=== PATIENT | male | born 1945 | race African-American/Black ===

== ENCOUNTER 2017-08-05 13:44 | Emergency (ER) | payer OTHER ==
[~2017-08-05 13:44] MED LIST: ASAB PO; BUM1 PO; C1 PO; CORDARONE PO; COREG6 PO; DSS PO; INHALER INH; KLOR-CON M2020 MEQ PO; L40 PO; LAN125 PO; PERCOCET 10/3251 TAB PO; SPIRO25 PO; TOPXL25 PO; Z300 PO
[2017-08-05 14:33] LABS: INTERNATIONAL NORMAL RATI 3.1 UNITS (-); PROTIME (NOT ORD) 31.7 SEC (12.0-14.5)
[2017-08-05 14:34] LABS: PARTIAL THROMBO TIME 66.6 SEC (22.5-37.2)
[2017-08-05 14:42] LABS: BASOPHILS 0.6 %; BASOPHILS ABSOLUTE 0.08 10/3/uL (0.0-0.16); BUN (BLOOD UREA NITROGEN) 10 MG/DL (6-23); CALCIUM, SERUM 8.2 MG/DL (8.5-10.4); CHEST PAIN PROFILE TAT 0 Hrs 19 Mins; CHLORIDE, SERUM 112 MMOL/L (96-112); CO2 (CARBON DIOXIDE) 24 MMOL/L (24-34); CREATININE 0.76 MG/DL (0.70-1.30); EOSINOPHILS 1.3 %; EOSINOPHILS ABSOLUTE 0.17 10/3/uL (0.0-0.53); ER CBC TAT 0 Hrs 19 Mins; GFR AFRICAN AMERICAN 107 ML/MIN (>=60); GFR NON AFRICAN AMERICAN 92 ML/MIN (>=60); GLUCOSE, SERUM 100 MG/DL (60-99); HEMATOCRIT 30.2 % (40.0-51.0); HEMOGLOBIN 8.1 g/dL (13.6-17.8); IMMATURE GRANULOCYTES 0.3 %; IMMATURE GRANULOCYTES ABSOLUTE 0.04 10/3/uL (0.0-0.11); LYMPHOCYTES 9.2 %; LYMPHOCYTES ABSOLUTE 1.18 10/3/uL (0.67-4.30); MANUAL DIFF NO %; MEAN CORPUS HGB CONC 26.8 g/dL (32.0-36.0); MEAN CORPUSCULAR HEMOGLOB 18.1 pg (26.0-34.0); MEAN CORPUSCULAR VOLUME 67.6 fL (80-100); MEAN PLATELET VOLUME 10.1 fL (9.2-13.0); MONOCYTES 9.5 %; MONOCYTES ABSOLUTE 1.22 10/3/uL (0.21-1.20); NEUTROPHILS 79.1 %; NEUTROPHILS ABSOLUTE 10.16 10/3/uL (2.02-8.40); PLATELET COUNT 316 10/3/uL (150-400); POTASSIUM, SERUM 4.2 MMOL/L (3.5-5.3); RED CELL COUNT 4.47 10/6/uL (4.7-6.1); SODIUM, SERUM 142 MMOL/L (135-148); TROPONIN I <0.02 NG/ML (<0.05); WHITE BLOOD CELLS 12.9 10/3/uL (4.5-10.5)
[2017-08-05 14:47] LABS: PLATELET ESTIMATE ADQ (ADEQUATE)
[2017-08-05 14:48] LABS: ANISOCYTOSIS 1+ (5-10/OIF) (0-5/OIF); GIANT PLATELET RARE; HYPOCHROMIA 3+ (>30/OIF) (0-2/OIF); POLYCHROMASIA 1+ (2-5/OIF) (0-1/OIF)
== END 2017-08-05 17:59 | disposition home or self-care (01) ==
LOC: ER 13:44
PROVIDERS: Emergency Medicine
DX: R06.02 Shortness of breath (principal); R11.0 Nausea; Z87.891 Personal history of nicotine dependence; J44.9 Chronic obstructive pulmonary disease, unspecified; I25.2 Old myocardial infarction; Z95.810 Presence of automatic (implantable) cardiac defibrillator; I50.9 Heart failure, unspecified; Z79.01 Long term (current) use of anticoagulants; Z79.899 Other long term (current) drug therapy
CPT/HCPCS: 71020; 74176; 80048; 83735; 83880; 84484; 85025; 85610; 85730; 93005; 99285